=== PATIENT | male | born 1990 | race Two or more races ===

== ENCOUNTER 2019-04-19 18:18 | Emergency (ER) | payer SELFPAY ==
[~2019-04-19] VITALS: Ht 165.1 cm; Wt 69.9 kg
[2019-04-19 18:54] VITALS: BP 181/73
[2019-04-19] MEDS ORDERED: ACETAMINOPHEN/CODEINE#3 (300/30mg) TAB PO ONE (19:30)
[2019-04-19] MEDS ORDERED: DexAMETHasone SOD PHOS 10MG/1ML VIAL INJ IM ONE (19:30)
== END 2019-04-19 21:48 | disposition home or self-care (01) ==
LOC: ER 18:24
DX: J06.9 Acute upper respiratory infection, unspecified (principal); H65.93 Unspecified nonsuppurative otitis media, bilateral
CPT/HCPCS: 96372; 99283; J1100